=== PATIENT | female | born 1980 | race Caucasian/White ===

== ENCOUNTER 2021-10-04 10:40 | Day surgery (SDC) | payer BC ==
[2021-10-04] MEDS ORDERED: TOBRA 0.3%/DEXAMETH 0.1% OPHTHALMIC SUSP 2.5 ML BTL ONE (10:50)
[2021-10-04] MEDS: TOBRA 0.3%/DEXAMETH 0.1% OPHTHALMIC SUSP 2.5 ML BTL OD SCH ×2 (11:00→11:30)
[2021-10-04 11:20] VITALS: BMI 24.1
[2021-10-04] MEDS ORDERED: EPI-SHUGARCAINE (EPINEPHRINE 0.025% & LIDOCAINE-PF 0.75%) 4ML ONE (12:42)
[2021-10-04] MEDS ORDERED: PHENYLEPHRINE 2.5% OPHTH SOLN 15 ML BOTTLE ONE (12:42)
[2021-10-04] MEDS ORDERED: BSS (NA/CA/MG/K) BALANCED SALT SOLUTION OPHTH SOLN 15 ML BOTTLE ONE (12:43)
[2021-10-04] MEDS ORDERED: TETRACAINE 0.5% OPHTH SOLN 2 ML BOTTLE ONE (12:43)
[2021-10-04] MEDS ORDERED: LIDOCAINE HCL 2% JELLY 10 ML CARTRIDGE ONE (12:43)
[2021-10-04] MEDS ORDERED: NEO/POLYMYX B SULF/DEXAMETH OPHTHALMIC 5ML BOTTLE ONE (12:43)
[2021-10-04] MEDS ORDERED: ACETAMINOPHEN 325 MG TABLET (FP) PO PRN (12:57)
[2021-10-04] MEDS ORDERED: MIDAZOLAM HCL 2 MG/2 ML SINGLE DOSE VIAL ONE ×2 (12:57→13:47)
[2021-10-04] MEDS ORDERED: MITOMYCIN 0.02% EYE DROPS - 2ML VIAL IO SCH (13:00)
[2021-10-04] MEDS ORDERED: PROPOFOL 20 ML ONE (13:13)
[2021-10-04] MEDS ORDERED: LIDOCAINE HCL/EPINEPHRINE/PF 20 ML VIAL ONE (13:13)
[2021-10-04] MEDS ORDERED: LIDOCAINE 1% P/F 10 MG/ML VIAL ONE (14:06)
[2021-10-04] MEDS ORDERED: methylPREDNISolone NA SUCC 40 MG/1 ML VIAL ONE (14:06)
[2021-10-04] MEDS ORDERED: BACITRACIN/POLYMYXIN OPH OINT 3.5 GM TUBE ONE (14:34)
[2021-10-04] MEDS ORDERED: ACETAMINOPHEN 325 MG TABLET (FP) ONE (14:49)
[2021-10-04 14:55] VITALS: PULSE 63; TEMP 98.1
[2021-10-04] MEDS ORDERED: ACETAMINOPHEN WITH CODEINE 300MG/30MG TABLET PO ONE (15:26)
[2021-10-04] MEDS ORDERED: ACETAMINOPHEN WITH CODEINE 300MG/30MG TABLET ONE (15:27)
[2021-10-04 15:31] VITALS: BP 98/67
== END 2021-10-04 16:01 | disposition home or self-care (01) ==
LOC: EDBD → FASU 10:40
PROVIDERS: ATTEND Ophthalmology
PROC: 08U007Z Supplement of Right Eye with Autologous Tissue Substitute, Open Approach (ICD-10-PCS; principal; 2021-10-04 13:27)
DX: H11.001 Unspecified pterygium of right eye (principal)
CPT/HCPCS: 65426; V2630; 84703; 88304-TC